=== PATIENT | male | born 1985 | race Caucasian/White ===

== ENCOUNTER 2021-02-08 12:40 | Emergency (ER) | payer MEDICAID ==
[~2021-02-08] VITALS: Ht 154.9 cm; Wt 72.6 kg
[2021-02-08 13:05] VITALS: BP 111/80
[2021-02-08] MEDS ORDERED: TDAP [DIPH/PERTUSSIS/TET] 0.5 ML VIAL IM ONE ×2 (13:20→13:30)
--- NOTE | 2021-02-08 13:22 | NUR ---
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
--- NOTE | 2021-02-08 13:38 | NUR ---
Ovidio padilla in [facility] - 02/08/21 at 1405 by EVELIA Patient discharged to home in stable condition. Written and verbal after care instructions given. Patient verbalizes understanding of instruction.
--- NOTE | 2021-02-08 14:00 | NUR ---
CASTILLO CHRISTINA AT BEDSIDE FOR WOUND DRESSING.
--- NOTE | 2021-02-08 14:06 | NUR ---
Patient discharged to home in stable condition. Written and verbal after care instructions given. Patient verbalizes understanding of instruction.
== END 2021-02-08 14:06 | disposition home or self-care (01) ==
LOC: ER 12:43
DX: S61.411A Laceration without foreign body of right hand, initial encounter (principal); J45.909 Unspecified asthma, uncomplicated; W23.0XXA Caught, crushed, jammed, or pinched between moving objects, initial encounter; Y93.89 Activity, other specified; Y92.89 Other specified places as the place of occurrence of the external cause; Y99.8 Other external cause status
CPT/HCPCS: 12001; 90471; 90715; 99283; A6403

== ENCOUNTER 2021-06-11 17:50 | Emergency (ER) | payer SELFPAY ==
[~2021-06-11] VITALS: Ht 177.8 cm; Wt 74.8 kg
[2021-06-11 18:21] VITALS: BP 106/61
--- NOTE | 2021-06-11 20:30 | NUR ---
PT DOES NOT WANT TO WAIT TO BE SEEN. PT VERBALIZED THAT HE IS FEELING BETTER. MD MADE AWARE
== END 2021-06-11 20:30 | disposition left against medical advice (07) ==
LOC: ER 17:51
DX: Z53.21 Procedure and treatment not carried out due to patient leaving prior to being seen by health care provider (principal)